=== PATIENT | female | born 1985 | race Caucasian/White ===

== ENCOUNTER 2016-12-08 12:33 | Emergency (ER) | payer OTHER ==
[2016-12-08] MEDS ORDERED: CIPROFLOXACIN 500 MG TAB PO ONE (13:01)
[2016-12-08 13:04] VITALS: BP 126/81; PULSE 74; RESP 14; TEMP 98.4; O2SAT 98
--- NOTE | 2016-12-08 13:06 | UCPHY ---
H & P Patient Type: New Time Seen by Provider: 12/08/16 12:50 HPI/ROS: CHIEF COMPLAINT: Diarrhea HISTORY OF PRESENT ILLNESS: Patient is a 31-year-old female who comes to the Urgent Care complaining of diarrhea for the last 5 days since returning from a trip to [place] for 1 week. She has not had a fever. She has not had any nausea vomiting. She denies abdominal pain. She denies . She is on control pills and had a normal last menstrual period last month. No urinary symptoms. REVIEW OF SYSTEMS: Constitutional: denies: chills, fever, recent illness, recent injury EENTM: denies: blurred vision, double vision, nose congestion Respiratory: denies: cough, shortness of breath Cardiac: denies: chest pain, irregular heart rate, lightheadedness, palpitations Gastrointestinal/Abdominal: See HPI Genitourinary: denies: dysuria, frequency, hematuria, pain Musculoskeletal: denies: joint pain, muscle pain Skin: denies: lesions, rash, jaundice, bruising Neurological: denies: headache, numbness, paresthesia, tingling, dizziness, weakness Hematologic/Lymphatic: denies: blood clots, easy bleeding, easy bruising Immunologic/allergic: denies: HIV/AIDS, transplant EXAM: GENERAL: Well-appearing, well-nourished and in no acute distress. HEAD: Atraumatic, normocephalic. EYES: Pupils equal round and reactive to light, extraocular movements intact, sclera anicteric, conjunctiva are normal. ENT: TMs normal, nares patent, oropharynx clear without exudates. Moist mucous membranes. NECK: Normal range of motion, supple without lymphadenopathy or JVD. LUNGS: Breath sounds clear to auscultation bilaterally and equal. No wheezes rales or rhonchi. HEART: Regular rate and rhythm without murmurs, rubs or gallops. ABDOMEN: Soft, nontender, normoactive bowel sounds. No guarding, no rebound. No masses appreciated. BACK: No CVA tenderness, no spinal tenderness, step-offs or deformities EXTREMITIES: Normal range of motion, no pitting or edema. No clubbing or cyanosis. NEUROLOGICAL: Cranial nerves II through XII grossly intact. Normal speech, normal gait. 5/5 strength, normal movement in all extremities, normal sensation PSYCH: Normal mood, normal affect. SKIN: Warm, dry, normal turgor, no visible rashes or lesions. Source: Patient Exam Limitations: No limitations - Medical/Surgical History Hx Asthma: No Hx Chronic Respiratory Disease: No Hx Diabetes: No Hx Cardiac Disease: No Hx Renal Disease: No Hx Cirrhosis: No - Family History Significant Family History: No pertinent family hx - Social History Smoking Status: Never smoked Alcohol Use: Sober Drug Use: None Constitutional: Initial Vital Signs Temperature (C) 36.9 C 12/08/16 13:01 Heart Rate 74 12/08/16 13:01 Respiratory Rate 14 12/08/16 13:01 Blood Pressure 126/81 H 12/08/16 13:01 O2 Sat (%) 98 12/08/16 13:01 O2 Delivery Mode Room Air Allergies/Adverse Reactions: No Known Allergies Allergy (Unverified 12/08/16 13:01) Home Medications: Medication Instructions Recorded Ciprofloxacin [Cipro] 500 mg PO BID #6 tab 12/08/16 Zonisamide 12/08/16 Medical Decision Making ED Course/Re-evaluation: Start the patient on a course of ciprofloxacin. This is why she came in she is happy with this plan. She declines further workup or testing. She agrees to adequate oral hydration and early follow-up. We discussed indications for returning. We had a discussion about quinolones and I told them that this is a an antibiotic that could potentially have some serious complications. We agreed that in this situation this is the right medication and one that I would give my family member but they do need to be aware these complications. We discussed increased risk of tendon rupture as well as peripheral neuropathy. I advised the patient to limit high impact activities. I told them to return for evaluation if they develop tendon or joint pain. This conversation represented shared medical decision making. We did consider alternatives. Differential Diagnosis: Partial list of the Differential diagnosis considered include but were not limited to; traveler's diarrhea, food poisoning, gastroenteritis and although unlikely based on the history and physical exam, I also considered appendicitis , diverticulitis, urinary tract infection, kidney stone. I discussed these differential diagnoses and the plan with the patient as well as the usual and expected course. The patient understands that the diagnosis is provisional and that in medicine we are not always correct and that further workup is often warranted. Usual and customary warnings were given. All of the patient's questions were answered. The patient was instructed to return to the emergency department should the symptoms at all worsen or return, otherwise to followup with the physician as we discussed. Departure - Departure Disposition: Home, Routine, Self-Care Clinical Impression: Travelers' diarrhea Condition: Fair Instructions: Traveler's Diarrhea (ED), Ciprofloxacin (By mouth) Referrals: NONE *PRIMARY CARE P,. [Primary Care Provider] - As per Instructions Allison Oakley MD [Medical Doctor] - As per Instructions Prescriptions: Ciprofloxacin [Cipro] 500 mg PO BID #6 tab - PQRS PQRS Measurement: Not applicable
== END 2016-12-08 13:09 | disposition home or self-care (01) ==
LOC: CED 12:33
DX: A09 Infectious gastroenteritis and colitis, unspecified (principal)
CPT/HCPCS: 99204-PO; G0463-PO